=== PATIENT | female | born 1950 | race African-American/Black ===

== ENCOUNTER 2017-05-03 08:18 | Outpatient (CLI) | payer MEDICARE, MEDICAID ==
--- NOTE | 2017-05-03 11:34 | MRI ---
MRI OF THE ABDOMEN WITHOUT AND WITH CONTRAST: Date: 05/03/17 COMPARISON: None. HISTORY: Cirrhosis. Primary hepatocellular carcinoma of the liver. Colon cancer. TECHNIQUE: Multiplanar, multisequence MR images were obtained of the abdomen without and with IV contrast. FINDINGS: The liver demonstrates a smooth contour without obvious cirrhosis. No focal liver lesions are seen. N o intrahepatic biliary dilatation is seen. There are small gallstones in the dependent aspect of the gallbladder. The kidneys, adrenal glands, s pleen, and pancreas are unremarkable. No abnormal enhancement is seen on this exam. No abdominal tiffany opathy is seen. No marrow signal abnormality is present. IMPRESSION: 1. Cholelithiasis. 2. No focal liver lesions identified. POS: [facility]
== END 2017-05-03 08:19 | disposition home or self-care (01) ==
LOC: MRI 08:18
PROVIDERS: ATTEND Internal Medicine Gastroenterology
DX: C22.0 Liver cell carcinoma (principal); C18.9 Malignant neoplasm of colon, unspecified; K80.20 Calculus of gallbladder without cholecystitis without obstruction
CPT/HCPCS: 74183